=== PATIENT | female | born 1985 | race Caucasian/White ===

== ENCOUNTER 2020-01-26 18:37 | Emergency (ER) | payer BC, MEDICAID ==
[~2020-01-26] VITALS: Ht 157.5 cm; Wt 61.2 kg
[2020-01-26] MEDS ORDERED: ACET-2154 PO (18:45)
--- NOTE | 2020-01-26 19:10 | NUR ---
Dr. Cardoza at bedside for MSE.
--- NOTE | 2020-01-26 19:20 | NUR ---
FLU and COVID swab collected and handed to Azar at lab.
--- NOTE | 2020-01-26 19:21 | NUR ---
Patient is alert and oriented, no respiratory distress noted.
--- NOTE | 2020-01-26 20:15 | NUR ---
Spoke with Azar from lab, covid specimen has not been picke dup yet, but laly was called already.
--- NOTE | 2020-01-26 20:27 | NUR ---
Patient discharged to home in stable condition. Written and verbal after care instructions given. Patient verbalizes understanding of instructions. Stressed follow up or return to ER for worsening s/s.
[2020-01-26 20:28] VITALS: BP 116/76
== END 2020-01-26 20:28 | disposition home or self-care (01) ==
LOC: ER 18:39
DX: B34.9 Viral infection, unspecified (principal); R50.9 Fever, unspecified; Z20.828 Contact with and (suspected) exposure to other viral communicable diseases
CPT/HCPCS: 87400; A4663